=== PATIENT | male | born 1970 | race Caucasian/White ===

== ENCOUNTER 2022-10-24 07:26 | Day surgery (SDC) | payer BC ==
[2022-10-17 11:40] VITALS: BMI 38.7
[~2022-10-24 07:26] MED LIST: DEXAMETHASONE SOD PHOSPHATE 4 MG/ML 1 ML VIAL IV ONE; HYDROmorphone 0.5 MG/0.5 ML SYRINGE IVP PRN; LACTATED RINGERS 1,000 ML IV SCH; LIDOCAINE 1% (10MG/ML) FOR IV START INTRADERMA PRN; MIDAZOLAM 2 MG/2 ML VIAL IV PRN; ONDANSETRON 4 MG/2 ML VIAL IVP ONE; ceFAZolin 3 GM in SODIUM CHLORIDE 0.9% 100 ML IVPB PRN
--- NOTE | 2022-10-24 07:39 | HP ---
HISTORY AND PHYSICAL DATE OF SURGERY: 10/24/2022. HISTORY OF PRESENT ILLNESS: Alfred Blunt is a 52-year-old patient seen with progressive left shoulder pain. We discussed options for treatment. He elected to proceed with left shoulder arthroscopy. Consent regarding the procedure was obtained. PAST MEDICAL HISTORY: Noncontributory. PAST SURGICAL HISTORY: Knee arthroscopy. DAILY MEDICATIONS: None. ALLERGIES: None. SOCIAL HISTORY: Denies tobacco use. PHYSICAL EVALUATION OF THE LEFT KNEE: Flexion is 70 degrees, abduction 60 degrees, external rotation 20 degrees with pain and weakness. Tenderness along the anterolateral acromion rotator cuff insertion site. Impingement sign is positive at 80 degrees. Drop-arm sign is positive. Distal neurovascular exam is intact. RADIOGRAPHS: Radiographs of the left shoulder revealed a type 2 acromion, moderate acromioclavicular joint osteoarthritis and no osseus abnormality. Otherwise, MRI of left shoulder revealed a large retracted rotator cuff tendon tear along with labral tear and acromioclavicular joint osteoarthritis. IMPRESSION: 1. Left shoulder impingement with rotator cuff tear. 2. Left shoulder acromioclavicular joint osteoarthritis. 3. Left shoulder labral tear. PLAN: Left shoulder arthroscopy with subacromial decompression, arthroscopic rotator cuff repair, Larissa procedure and debridement. MMODL / IJN: [id number] /
[2022-10-24 08:20] LABS: Glucose,Whole Blood 87 mg/dL (70-110)
[2022-10-24] MEDS ORDERED: MIDAZOLAM 2 MG/2 ML VIAL IV ONE (08:32)
[2022-10-24] MEDS ORDERED: PROPOFOL 10 MG/ML 20 ML VIAL IV ONE (08:47)
[2022-10-24] MEDS ORDERED: DEXAMETHASONE SOD PHOSPHATE 4 MG/ML 1 ML VIAL ONE (08:47)
[2022-10-24] MEDS ORDERED: LIDOCAINE 2% INJ 20 MG/ML (2 ML VIAL) ONE (08:47)
[2022-10-24] MEDS ORDERED: SUCCINYLCHOLINE CHLORIDE 200 MG/10 ML VIAL IV ONE (08:47)
[2022-10-24] MEDS ORDERED: ROPIVACAINE 5 MG/ML 30 ML VIAL ONE (08:47)
[2022-10-24] MEDS ORDERED: fentaNYL (PF) 50 MCG/ML 2 ML AMP ONE (08:47)
--- NOTE | 2022-10-24 09:35 | P.ANPRN ---
Procedure Note - Anesthesia - Nerve Block Performed Left Interscalene Single Time Out Performed: Yes ([id number]) Date of Procedure: 10/24/22 Procedure Start Time: : Procedure Stop Time: :39 Location of Patient: PreOp Indication: Acute Post-Operative Pain, Dx/Pain Location (Left shoulder) Specifically requested for management of pain by DrArleth: Phill Daniels Sedation Type: Sedate with meaningful contact maintained Position: Supine Needle Types: Pajunk Needle Gauge: 20 Ultrasound used to visualize needle placement: Yes Ultrasound used to observe medication spread: Yes Injectate: 0.5% Ropivacaine (see comment for volume) (30 cc + 4mg of decadron) Blood Aspirated: No Pain Paresthesia on Injection Noted: No Resistance on Injection: Normal Image Stored and Saved: Yes Events: Uneventful and Well Tolerated
[2022-10-24] MEDS ORDERED: LACTATED RINGERS 1,000 ML IV ONE (10:17)
--- NOTE | 2022-10-24 10:37 | P.OP ---
Date of Procedure: 10/24/22 Preoperative Diagnosis: Left shoulder impingement Postoperative Diagnosis: 1. Left shoulder rotator cuff tear 2. Left shoulder impingement 3. Left shoulder partial long head biceps tendon tear Procedure(s) Performed: 1. Left shoulder arthroscopic rotator cuff repair 2. Left shoulder arthroscopic subacromial decompression 3. Left shoulder arthroscopic biceps tenotomy Implants: 2Arthrex 4.75 swivel lock anchors Anesthesia: GETA, regional (Interscalene block) Surgeon: Phill Daniels Main Entree Cook And Cashier #1: Yuriy Ernandez Estimated Blood Loss (ml): 7 Pathology: none sent Condition: stable Disposition: PACU Indications for Procedure: 52-year-old patient seen with progressive left shoulder pain. After having treatment options discussed, he elected to proceed with arthroscopy. Operative Findings: see description of procedure Description of Procedure: Patient underwent an interscalene block by department of anesthesia. The patient was then taken to the operative suite. The patient underwent a general anesthetic by the department of anesthesia. The patient was placed into a lateral position and secured. There was appropriate padding of the bony prominence. Left shoulder was then prepped and draped in normal sterile orthopedic fashion. We placed the extremity in 10 pounds of longitudinal traction. A posterior incision was now made for a posterior working portal site. The trocar and cannula were inserted into the glenohumeral joint. Arthroscopy was initiated. Spinal needle was now inserted anteriorly, to ascertain the anterior working portal site. An incision was now made in that area, a trocar was inserted followed by a probe. There was significant partial tearing and hyperemia of the long head biceps tendon. There was some mild superficial fraying of the labrum anteriorly. There were some mild grade 1 chondral changes of the glenoid fossa. I performed an arthroscopic biceps tenotomy. I again probed the labrum and it was stable. Instruments were now removed from glenohumeral joint. Utilizing the posterior working portal site, the trocar and cannula were inserted into the subacromial space. Arthroscopy initiated. I made an incision 2 fingerbreadths lateral to the acromion. I introduced my trocar followed by my ArthroCare ablator. I now began ablating thick subacromial bursal tissue, which exposed the undersurface of the anterior acromion. There was diminished subacromial space. There was a very prominent anterior acromion. A motorized bur was introduced and a subacromial decompression was performed. I also excised some osteophytes off the inferior aspect of the distal clavicle. The AC joint was visualized and noted to be moderately arthritic, I did not think enough to warrant Lraissa procedure. I now turned my attention to the rotator cuff tendon. There was a delaminated tear involving the distal supraspinatus measuring approximately 2 cm. At this point I debrided the margins try to get to stable tendon tissue. The defect measured approximately 2.5 cm. We again noted an area of delamination. At this point I repaired the delaminated parts of rotator cuff tendon tear utilizing 3 [id number] sutures converging that delamination nicely. With the assistance of Miky NAPOLES I now passed for everted mattress sutures through good bites of rotator cuff tendon. I had abraded the footprint with a motorized bur. I now crisscrossed the sutures and took for suture limbs through my lateral portal site. I partial anteriorly for insertion of an anchor. All 4 limbs of suture were passed through the eyelet of an Arthrex 4.75 swivel lock anchor. I placed the eyelet into our pre-punch hole. I held in position while Miky NAPOLES tension all 4 limbs of suture and with that anchor with good fixation noted. Those residual suture limbs were clipped. I now shuttled the remaining 4 suture limbs to the lateral portal site. I partial hole more laterally for insertion of an anchor. The remaining 4 suture limbs were passed through the 11 Arthrex 4.75 swivel lock anchor. I placed the eyelet into the pre-punch hole. I held in position while Miky NAPOLES tension all 4 limbs of suture and deployed the anchor with good fixation noted. All residual suture limbs were now clipped. We had good compression of the tendon along the entire footprint. Instruments now removed from the portal sites. All portal sites were approximated with nylon suture. Sterile dressings were applied followed by a shoulder immobilizer. Yuriy NAPOLES assisted in this complex case. The patient was awakened, transferred to a bed, and taken to recovery in stable condition.
[2022-10-24 10:41] VITALS: TEMP 97
[2022-10-24 11:48] VITALS: RESP 12
[2022-10-24 12:19] VITALS: BP 148/94; PULSE 79
== END 2022-10-24 12:39 | disposition home or self-care (01) ==
LOC: OR 07:26
PROVIDERS: ATTEND Orthopaedic Surgery
DX: S46.012A Strain of muscle(s) and tendon(s) of the rotator cuff of left shoulder, initial encounter (principal); S46.112A Strain of muscle, fascia and tendon of long head of biceps, left arm, initial encounter; S43.432A Superior glenoid labrum lesion of left shoulder, initial encounter; M75.42 Impingement syndrome of left shoulder; M25.712 Osteophyte, left shoulder; M19.012 Primary osteoarthritis, left shoulder; J45.909 Unspecified asthma, uncomplicated; K21.9 Gastro-esophageal reflux disease without esophagitis; Z98.890 Other specified postprocedural states; X58.XXXA Exposure to other specified factors, initial encounter; G89.18 Other acute postprocedural pain
CPT/HCPCS: 29827; 29826; 64415; 76942; 84132; C1713 ×3; J2250; J0330; J1100; J0690; J2405; J3010; J2795; J2704; J2001